=== PATIENT | male | born 2000 | race Hispanic/Latino ===

== ENCOUNTER 2021-12-29 11:46 | Emergency (ER) | payer OTHER ==
[~2021-12-29] VITALS: Ht 172.7 cm; Wt 67.2 kg
[2021-12-29] MEDS ORDERED: IBUPROFEN 600 MG TAB PO STA (12:09)
[2021-12-29] MEDS ORDERED: ONDANSETRON HCL 4 MG ORAL DISINTEGRATING TAB PO ONE (12:15)
[2021-12-29] MEDS ORDERED: ONDANSETRON HCL 4 MG ORAL DISINTEGRATING TAB ONE (12:27)
[2021-12-29] MEDS ORDERED: ACETAMINOPHEN 325 MG TAB ONE (12:28)
[2021-12-29] MEDS ORDERED: ZITHROMAX250 MG PO (12:29)
== END 2021-12-29 12:48 | disposition home or self-care (01) ==
LOC: FSED 12:04
DX: R50.9 Fever, unspecified (principal); J20.9 Acute bronchitis, unspecified; R05.9 Cough, unspecified
CPT/HCPCS: 83518; 87400; 99283; Q0162